=== PATIENT | female | born 1980 | race Caucasian/White ===

== ENCOUNTER 2016-11-27 17:51 | Emergency (ER) ==
[2016-11-27 18:09] LABS: URINE SOURCE CLEAN CATCH
[2016-11-27 18:20] LABS: BILIRUBIN URINE NEGATIVE (NEGATIVE); BLOOD URINE 1+ (NEGATIVE); CLARITY VERY CLOUDY (CLEAR); COLOR YELLOW; GLUCOSE URINE NEGATIVE (NEGATIVE); LEUKOCYTES URINE 1+ (NEGATIVE); NITRITE URINE NEGATIVE (NEGATIVE); PH URINE 6.5; PROTEIN URINE TRACE mg/dL (NEGATIVE); UROBILINOGEN URINE NORMAL
[2016-11-27 18:26] LABS: URINE EPITHELIAL CELLS >10 /HPF (<10); URINE RBC <10 /HPF (<10)
[2016-11-27 18:27] LABS: URINE CAST NONE SEEN /LPF; URINE CRYSTAL NONE SEEN /HPF; URINE CULTURE PL NEEDED? YES; URINE WBC <10 /HPF (<10)
[2016-11-27] MEDS ORDERED: MORPHINE IM ONE ×2 (18:58→20:32)
[2016-11-27] MEDS ORDERED: PHENERGAN IM ONE (18:58)
--- NOTE | 2016-11-27 18:59 | PROVIDER DOCUMENTATION ---
HPI-Abdominal Pain/GI Problem - General Chief Complaint: Flank Pain Stated Complaint: ABD PAIN Time Seen by Provider: 11/27/16 18:51 Source: patient Allergies/Adverse Reactions: Patient Allergies Allergy/AdvReac Type Severity Reaction Status Date / Time amoxicillin [Amoxicillin] Allergy Intermediate ITCHING Verified 08/31/16 11:12 Home Medications: Home Medication List Medication Instructions Recorded Confirmed Last Taken Type Tizanidine [Zanaflex] 8 mg PO QHS 08/31/16 08/31/16 08/30/16 21:00 History Aripiprazole [Abilify] 10 mg PO QAM #30 dose 09/03/16 Unknown Rx Butalbital/APAP/Caffeine [Fioricet] 1 each PO DAILY PRN PRN #0 tablet 09/03/16 Unknown Rx Citalopram [Celexa] 40 mg PO QAM #30 dose 09/03/16 Unknown Rx Clonazepam [Klonopin] 2 mg PO QHS #30 dose 09/03/16 Unknown Rx Cyanocobalamin [Vitamin B-12] 1,000 microgm PO DAILY #30 tablet 09/03/16 Unknown Rx Docusate Sodium [Colace] 100 mg PO BID #60 capsule 09/03/16 Unknown Rx Estradiol [Estrace] 1 mg PO DAILY #0 tablet 09/03/16 Unknown Rx Fluticasone 50 Mcg Nasal [place] 1 spray ZULAY DAILY #1 bottle 09/03/16 Unknown Rx [Flonase] Furosemide [Lasix] 40 mg PO DAILY #0 tablet 09/03/16 Unknown Rx Melatonin 5 mg PO QHS #0 tablet 09/03/16 Unknown Rx Metoprolol [Lopressor] 25 mg PO DAILY #0 tablet 09/03/16 Unknown Rx Omeprazole [Prilosec] 20 mg PO DAILY@0700 #0 capsule 09/03/16 Unknown Rx Oxycodone/APAP 5 mg/325 mg 2 each PO TID@0800,1200,2200 #0 09/03/16 Unknown Rx [Percocet-5] tablet Promethazine [Phenergan] 25 mg PO Q6H #120 tablet 09/03/16 Unknown Rx Propranolol [Inderal] 10 mg PO BID #60 tablet 09/03/16 Unknown Rx Ropinirole [Requip] 1 mg PO HS #0 tablet 09/03/16 Unknown Rx Spironolactone [Aldactone] 25 mg PO DAILY #0 tablet 09/03/16 Unknown Rx Sulfamethoxazole/Tmp D.s. [Septra 1 each PO BID #17 tablet 09/03/16 Unknown Rx Ds] Tamsulosin [Flomax] 0.4 mg PO DAILY #30 capsule 09/03/16 Unknown Rx Phenazopyridine HCl [Pyridium] 100 mg PO TID #6 tablet 11/27/16 Unknown Rx Sulfamethoxazole/Trimethoprim 1 each PO BID #10 tablet 11/27/16 Unknown Rx [Bactrim Ds Tablet] - History of Present Illness-ABD Nature of Presenting Problems: 36 y/o WF c/o R flank pain, R abd. pain, nausea x 5 days. States pain is unbearable, 7/10, sharp in nature. States pain is constant. States started in R flank and radiates to R abd. States medullary sponge d/s and stage 3 renal d/ s. States hx of kidney stones in the past. States urination is decreased; notes hematuria. Denies any V/D/C, fever. States chills. Review of Systems - Adult - REVIEW OF SYSTEMS - ADULT Constitutional: reports: see HPI, chills. denies: fever Eyes: reports: no symptoms reported. denies: blurred vision, double vision Ears, Nose, Mouth & Throat: reports: no symptoms reported. denies: ear pain, nose pain Cardiovascular: reports: no symptoms reported. denies: chest pain, palpitations Respiratory: reports: no symptoms reported. denies: dyspnea on exertion, shortness of breath Gastrointestinal: reports: see HPI, abdominal pain, nausea. denies: constipation, diarrhea, vomiting Genitourinary: reports: see HPI, flank pain, frequent UTI's, hematuria. denies : dysuria, discharge, frequency Musculoskeletal: reports: no symptoms reported. denies: joint pain, joint swelling Integumentary: reports: no symptoms reported. denies: nail changes, rash Neurological: reports: no symptoms reported. denies: numbness, paresthesia Psychiatric: reports: no symptoms reported Endocrine: reports: no symptoms reported. denies: cold intolerance, heat intolerance Hematologic/Lymphatic: reports: no symptoms reported. denies: easy bruising, prolonged bleeding Allergic/Immunologic: reports: no symptoms reported All Other Systems: Reviewed and Negative Past History - Adult - PAST MEDICAL HISTORY-ADULT Review of Records: reports: Nursing Assessment Review, Medications Reviewed Cardiovascular: reports: HTN, VT Genitourinary: reports: kidney disease, kidney stones, other (medullary sponge d /s) Psychiatric: reports: anxiety, depression - PRIOR SURGERIES/PROCEDURES Surgical/Procedure History: reports: cholecystectomy, cardiac stent, hysterectomy, other (lithotripsy) - IMMUNIZATION STATUS Childhood Immunizations: See Nurse Assessment Flu Vaccine: See Nurse Assessment - FAMILY HISTORY Family History: reviewed, not pertinent - SOCIAL HISTORY Smoking: cigarettes, less than 1 pack/day Provider spent 3-5 mins advising pt. on dangers of tobacco.: Discussed manners to quit use, and f/u contacts for add'l counseling. Alcohol Use Frequency: never Physical Exam-General - PHYSICAL EXAM-ADULT Initial Vital Signs Reviewed: Yes - CONSTITUTIONAL General Appearance: alert, moderate distress - EYES Eyes: pink conjunctivae - HEAD, EARS, NOSE, MOUTH & THROAT HENMT: normocephalic/atraumatic - NECK Neck: normal inspection - RESPIRATORY Respiratory: lungs clear, normal breath sounds. negative: crackles, rales, rhonchi, stridor, wheezing - CARDIOVASCULAR Cardiovascular: regular rate, rhythm. negative: bradycardia, tachycardia - GASTROINTESTINAL (ABDOMEN) Abdominal Exam: normal bowel sounds, soft, tenderness (RLQ, RUQ, suprapubic). negative: distended, guarding, rigid, rebound, Mae's sign - MUSCULOSKELETAL Back Exam: no CVA tenderness (L), CVA tenderness (R) Extremity: normal gait - SKIN Integumentary: normal color, normal turgor, warm/dry - NEUROLOGIC Neurologic: negative: aphasia - PSYCHIATRIC Psych/Mental Status: normal mood/affect, normal thought content, normal thought process, oriented x 3 Progress - PLAN OF CARE/RESULTS Progress/Plan/Lab Results: Laboratory Tests 11/27/16 11/27/16 11/27/16 17:58 19:30 19:30 WBC 13.09 H RBC 3.97 L Hgb 12.6 Hct 37.2 MCV 93.7 MCH 31.7 H MCHC 33.9 RDW Std Deviation 14.1 Plt Count 304 MPV 10.0 Immature Gran % (Auto) 0.2 Neut % (Auto) 62.3 Lymph % (Auto) 29.9 Rock % (Auto) 6.1 Eos % (Auto) 0.9 Baso % (Auto) 0.6 Immature Gran # (Auto) 0.03 Neut # (Auto) 8.14 H Lymph # (Auto) 3.92 H Rock # (Auto) 0.80 H Eos # (Auto) 0.12 Baso # (Auto) 0.08 Sodium 138 Potassium 2.9 L Chloride 106 Carbon Dioxide 17 L Anion Gap 15 BUN 13 Creatinine 1.8 H Estimated GFR/1.73 m2 31 BUN/Creatinine Ratio 7 Glucose 83 Calculated Osmolality 275 Calcium 8.3 L Total Bilirubin 0.20 AST 12 ALT 10 Alkaline Phosphatase 132 H Total Protein 6.7 Albumin 3.7 Globulin 3.0 Albumin/Globulin Ratio 1.0 Amylase 62 Lipase 19 Urine Source CLEAN CATCH Urine Color YELLOW Urine Clarity VERY CLOUDY A Urine pH 6.5 Ur Specific [place] 1.010 Urine Protein TRACE A Urine Ketones NEGATIVE Urine Blood 1+ A Urine Nitrite NEGATIVE Urine Bilirubin NEGATIVE Urine Urobilinogen NORMAL Urine Microscopic RBC <10 Urine WBC 1+ A Urine Microscopic WBC <10 Ur Epithelial Cells >10 A Urine Crystals NONE SEEN Urine Bacteria 1+ Urine Casts NONE SEEN Urine Yeast NONE SEEN Urine Glucose NEGATIVE Orders Category Date Time Status NPO Diet 11/27/16 18:57 Completed RENAL STONE SEARCH [CT] Stat Exams 11/27/16 18:57 Completed AMYLASE [CHEM] Stat Lab 11/27/16 19:30 Completed CBC WITH ELECTRONIC DIFF [HEME] Stat Lab 11/27/16 19:30 Completed COMPREHENSIVE METABOLIC PANEL [CHEM] Stat Lab 11/27/16 19:30 Completed LIPASE [CHEM] Stat Lab 11/27/16 19:[address] W/POSS RFLX CULT [URINALYSIS] Stat Lab 11/27/16 17:58 Completed URINE CULTURE [RM] Routine Lab 11/27/16 22:18 Completed CefTRIAXONE [Rocephin] Med 11/27/16 20:32 Discontinued 1 gm IM NOW ONE Lidocaine 1% Pf [Xylocaine-Mpf 1%] Med 11/27/16 20:32 Discontinued 5 ml INJ NOW ONE Morphine Med 11/27/16 18:58 Discontinued 4 mg IM NOW ONE Morphine Med 11/27/16 20:32 Discontinued 4 mg IM NOW ONE Promethazine [Phenergan] Med 11/27/16 18:58 Discontinued 25 mg IM NOW ONE Vital Signs Temp Pulse Resp BP Pulse Ox 11/27/16 21:12 98.5 F 77 18 124/79 100 11/27/16 17:55 97.7 F 103 H 18 116/76 100 amoxicillin [Amoxicillin] Allergy (Intermediate, Verified 08/31/16 11:12) ITCHING Tizanidine [Zanaflex] 8 mg PO QHS 08/31/16 Aripiprazole [Abilify] 10 mg PO QAM #30 dose 09/03/16 Butalbital/APAP/Caffeine [Fioricet] 1 each PO DAILY PRN PRN #0 tablet 09/03/16 Citalopram [Celexa] 40 mg PO QAM #30 dose 09/03/16 Clonazepam [Klonopin] 2 mg PO QHS #30 dose 09/03/16 Cyanocobalamin [Vitamin B-12] 1,000 microgm PO DAILY #30 tablet 09/03/16 Docusate Sodium [Colace] 100 mg PO BID #60 capsule 09/03/16 Estradiol [Estrace] 1 mg PO DAILY #0 tablet 09/03/16 Fluticasone 50 Mcg Nasal [place] [Flonase] 1 spray ZULAY DAILY #1 bottle 09/03/16 Furosemide [Lasix] 40 mg PO DAILY #0 tablet 09/03/16 Melatonin 5 mg PO QHS #0 tablet 09/03/16 Metoprolol [Lopressor] 25 mg PO DAILY #0 tablet 09/03/16 Omeprazole [Prilosec] 20 mg PO DAILY@0700 #0 capsule 09/03/16 Oxycodone/APAP 5 mg/325 mg [Percocet-5] 2 each PO TID@0800,1200,2200 #0 tablet 09/03/16 Promethazine [Phenergan] 25 mg PO Q6H #120 tablet 09/03/16 Propranolol [Inderal] 10 mg PO BID #60 tablet 09/03/16 Ropinirole [Requip] 1 mg PO HS #0 tablet 09/03/16 Spironolactone [Aldactone] 25 mg PO DAILY #0 tablet 09/03/16 Sulfamethoxazole/Tmp D.s. 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/16) NICOTINE DEPENDENCE, CIGARETTES, UNCOMPLICATED (11/27/16) MAJOR DEPRESSIVE DISORDER, SINGLE EPISODE, UNSPECIFIED (11/27/16) ANXIETY DISORDER, UNSPECIFIED (11/27/16) ESSENTIAL (PRIMARY) HYPERTENSION (11/27/16) OLD MYOCARDIAL INFARCTION (11/27/16) OTH DISORDERS OF KIDNEY AND URETER IN DISEASES CLASSD ELSWHR (11/27/16) ACUTE CYSTITIS WITH HEMATURIA (11/27/16) UNSPECIFIED OVARIAN CYST, RIGHT SIDE (11/27/16) RIGHT UPPER QUADRANT PAIN (11/27/16) LOWER ABDOMINAL PAIN, UNSPECIFIED (11/27/16) RIGHT LOWER QUADRANT PAIN (11/27/16) UNSPECIFIED ABDOMINAL PAIN (11/27/16) NAUSEA (11/27/16) CHILLS (WITHOUT FEVER) (11/27/16) TOBACCO ABUSE COUNSELING (11/27/16) ALF (CURRENT) USE OF INHALED STEROIDS (11/27/16) OTHER ALF (CURRENT) DRUG THERAPY (11/27/16) PERSONAL HISTORY OF URINARY (TRACT) INFECTIONS (11/27/16) PERSONAL HISTORY OF URINARY CALCULI (11/27/16) PRESENCE OF CORONARY ANGIOPLASTY IMPLANT AND GRAFT (11/27/16) - CT/MRI 1 CT Study: Renal Stone Impression: See EMR Report (1. Bilateral extensive medullary nephrocalcinosis but no obstructing stones identified and no evidence of acute obstructive uropathy. 2. Several intermediate density renal nodules bilaterally that are stable in size. It probably represents a cyst containing blood products or proteinaceous debris. 3. Small right ovarian cyst. 4. Other incidental/ nonacute findings detailed above but no definite acute pathology, otherwise. - per Dr. Cadena) Departure - Departure Time of Disposition Order: 20:42 DIAGNOSIS: Flank pain, Kidney disease UTI (urinary tract infection) Qualifiers: Urinary tract infection type: acute cystitis Hematuria presence: with hematuria Qualified Code(s): N30.01 - Acute cystitis with hematuria Disposition: HOME 01 Certified Medical Emergency: Emergent Condition: Stable Additional Instructions: Take medications as directed. Follow up with your kidney specialist on Tuesday for further management. Drink plenty of fluids. ED Follow Up Instructions: You have been treated by a care provider in the Emergency Department. These instructions are being provided to you so you can have an understanding of how to care for yourself upon discharge. Upon discharge from the Emergency Department, you are responsible for making arrangements for follow-up care by a physician of your choice. Take all prescribed medications as directed. Return to the Emergency Department immediately for any new or worsening symptoms. You may call the Physician Referral phone number at [phone] to obtain a list of Physicians who are taking new patients. Prescriptions: Sulfamethoxazole/Trimethoprim [Bactrim Ds Tablet] 1 each PO BID #10 tablet Phenazopyridine HCl [Pyridium] 100 mg PO TID #6 tablet Referrals: Alan Cosme [Primary Care Provider] - Forms: Return to School/Parent Work Instructions: Phenazopyridine tablets, Urinary Tract Infection, [id number], Flank Pain, [id number], Sulfamethoxazole; Trimethoprim, SMX-TMP tablets Attestation - Physician/ TRI Attestation Patient care was provided by Advanced Practice Provider:: Yes Advanced Practice Provider:: Mitzy Vizcarra Advanced Practice Provider documentation review:: The Mid-level provider documentation, treatment plan and medical decision making was reviewed by the physician who agrees with all treatment and medical decision making by the P.
[2016-11-27 19:35] LABS: MANUAL DIFF NEEDED? NO
[2016-11-27 19:36] LABS: BASO% 0.6 % (0.0-0.8); EOS# 0.12 X1000 (0.0-0.7); EOS% 0.9 % (0.0-10.0); HEMATOCRIT 37.2 % (37.0-47.0); HEMOGLOBIN 12.6 g/dL (12.0-16.0); IMM GRAN# 0.03 X1000 (0.0-0.04); IMM GRAN% 0.2 % (0.0-0.5); LYMPH# 3.92 X1000 (1.2-3.4); LYMPH% 29.9 % (20.5-51.1); MCH 31.7 PG (27-31); MCHC 33.9 g/dL (33-37); MCV 93.7 FL (81-99); MONO% 6.1 % (1.7-9.3); NEUT% 62.3 % (42.2-75.2); PLT 304 X1000 (130-400); RBC 3.97 XMIL (4.2-5.4)
[2016-11-27 19:49] LABS: ALBUMIN 3.7 g/dL (3.5-5.0); CALCIUM 8.3 mg/dL (8.8-10.2); POTASSIUM 2.9 mmol/L (3.5-5.1); TOTAL BILIRUBIN 0.2 mg/dL (0.20-1.00); TOTAL PROTEIN 6.7 g/dL (6.3-8.3)
--- NOTE | 2016-11-27 19:53 | Diag Imaging Result Document ---
PROCEDURE NAME: RENAL STONE SEARCH - 11/27/2016 CT ABDOMEN AND PELVIS WITHOUT CONTRAST: COMPARISON: 07/15/2016. FINDINGS: There has been a previous cholecystectomy. There is bilateral medullary nephrocalcinosis. There are few stable small nodular densities at the peripheries of both kidneys that probably represent small cysts containing proteinaceous debris or blood products. There are no ureteral stones and there is no hydronephrosis or evidence of acute obstructive uropathy. The urinary bladder is unremarkable. The appendix appears normal. There appears to have been a prior hysterectomy. There is a 2.4 cm low-dense right adnexal nodule that probably represents a cyst. No focal inflammatory changes, free abdominal gas, or free fluid is identified. The remainder of the solid viscera of the abdomen and pelvis and the remainder of the GI tract is essentially unremarkable. IMPRESSION: 1. Bilateral extensive medullary nephrocalcinosis but no obstructing stones identified and no evidence of acute obstructive uropathy. 2. Several intermediate density renal nodules bilaterally that are stable in size. It probably represents a cyst containing blood products or proteinaceous debris. 3. Small right ovarian cyst. 4. Other incidental/nonacute findings detailed above but no definite acute pathology, otherwise.
[2016-11-27] MEDS ORDERED: XYLOCAINE-MPF 1% INJ ONE (20:32)
[2016-11-27] MEDS ORDERED: ROCEPHIN IM ONE (20:32)
[2016-11-27 21:14] VITALS: BP 124/79
== END 2016-11-27 21:12 | disposition home or self-care (01) ==
LOC: P.ED 17:51
DX: N30.01 Acute cystitis with hematuria (principal); R10.9 Unspecified abdominal pain; R68.83 Chills (without fever); R11.0 Nausea; Z87.440 Personal history of urinary (tract) infections; I10 Essential (primary) hypertension; I25.2 Old myocardial infarction; Z87.442 Personal history of urinary calculi; N83.201 Unspecified ovarian cyst, right side; E83.59 Other disorders of calcium metabolism; N29 Other disorders of kidney and ureter in diseases classified elsewhere; F41.9 Anxiety disorder, unspecified; F32.9 Major depressive disorder, single episode, unspecified; Z95.5 Presence of coronary angioplasty implant and graft; F17.210 Nicotine dependence, cigarettes, uncomplicated; Z71.6 Tobacco abuse counseling; R10.31 Right lower quadrant pain; R10.11 Right upper quadrant pain; R10.30 Lower abdominal pain, unspecified; Z79.899 Other long term (current) drug therapy; Z79.51 Long term (current) use of inhaled steroids
CPT/HCPCS: 74176; 80053; 81001; 82150; 83690; 85025; 87088; 96372; J0696; J2270; J2550